=== PATIENT | female | born 1980 | race Hispanic/Latino ===

== ENCOUNTER 2021-06-24 06:47 | Day surgery (SDC) | payer BC ==
[2021-06-20 13:50] VITALS: BP 131/60
[2021-06-20 13:57] LABS: BASOPHILS % (AUTO) 0.8 % (0.0-5.0); EOSINOPHILS % (AUTO) 2.2 % (0.0-8.0); HEMATOCRIT 25.5 % (36-48); MEAN CORPUSCULAR HEMOGLOBIN 18.9 pg (27.0-33.0); MEAN CORPUSCULAR HGB CONC 28.6 g/dL (32.0-36.0); MEAN CORPUSCULAR VOLUME 66.1 fL (79-99); MONOCYTES % (AUTO) 8.2 % (3.0-13.0); NEUTROPHILS % (AUTO) 65.3 % (40.0-77.0); PLATELET COUNT (AUTO) 256 K/uL (130-400); RED BLOOD CELL COUNT(AUTO) 3.86 MIL/uL (4.00-5.50); RED CELL DISTRIBUTION WIDTH 18.9 % (11.0-15.5)
[~2021-06-24] VITALS: Ht 157.5 cm; Wt 52.0 kg
[2021-06-24] VITALS (16 sets, daily range): BP systolic 93–136; BP diastolic 54–72
[~2021-06-24 06:47] MED LIST: CALDOLOR 800MG+NS 250ML 250 ML IV SCH; LEVO88TA72 PO; ROPI0.257 PO
[2021-06-24] MEDS: LACTATED RINGERS 1000ML 1,000 ML IV SCH ×2 (07:30→07:31)
[2021-06-24] MEDS ORDERED: SCOPOLAMINE HYDROBROMIDE 1 EACH ADH..PATCH TD ONE (07:48)
[2021-06-24] MEDS ORDERED: CEFAZOLIN SODIUM 1 GM VIAL ONE (08:17)
[2021-06-24] MEDS ORDERED: SUCCINYLCHOLINE 200MG/10ML SYR ONE ×2 (08:19→08:22)
[2021-06-24] MEDS ORDERED: LIDOCAINE PF 100MG/5ML (2%) SYRINGE 5ML ONE ×2 (08:19→08:22)
[2021-06-24] MEDS ORDERED: MIDAZOLAM HCL 1 MG/ML 2ML VIAL ONE (08:19)
[2021-06-24] MEDS ORDERED: DEXAMETHASONE SOD PHOSPHATE 10MG/ML 1ML VIAL ONE (08:19)
[2021-06-24] MEDS ORDERED: PROPOFOL 10 MG/ML 20ML VIAL IV ONE (08:19)
[2021-06-24] MEDS ORDERED: GLYCOPYRROLATE 1 MG/5 ML SYRINGE ONE (08:20)
[2021-06-24] MEDS ORDERED: ROCURONIUM 10MG/1ML SYR 10 MG/ML ML ONE (08:20)
[2021-06-24] MEDS ORDERED: ONDANSETRON 4MG INJ ONE (08:20)
[2021-06-24] MEDS ORDERED: NEOSTIGMINE 5MG/5ML SYR IV ONE (08:20)
[2021-06-24] MEDS ORDERED: FENTANYL CITRATE PF 50 MCG/1 ML 2ML VIAL ONE (08:20)
[2021-06-24] MEDS ORDERED: CEFAZOLIN SODIUM 2 GM VIAL IV ONE (08:32)
[2021-06-24] MEDS ORDERED: MEPERIDINE-PF 25 MG/ML SYG ONE ×2 (09:21→09:30)
[2021-06-24] MEDS ORDERED: ACETAMINOPHEN 325 MG TAB ONE (10:25)
== END 2021-06-24 11:00 | disposition home or self-care (01) ==
LOC: DAH 06:47
PROVIDERS: ATTEND Obstetrics & Gynecology
DX: N92.1 Excessive and frequent menstruation with irregular cycle (principal); E03.9 Hypothyroidism, unspecified; Z98.891 History of uterine scar from previous surgery; Z79.899 Other long term (current) drug therapy; Z83.3 Family history of diabetes mellitus
CPT/HCPCS: 36415 ×2; 58563; 85025; 86850 ×2; 86900 ×2; 86901 ×2; 87635; A4215; A4221; A4222; A4223; A4351; A4355; A4663; A6260; C9803; J0330 ×2; J0690 ×2; J1100; J1741; J2001 ×2; J2175 ×2; J2250; J2405; J2704; J2710; J3010; J3490; J7030 ×2; J7120

== ENCOUNTER → 2023-03-24 | Outpatient (CLI) | payer BC ==
[~2023-03-24] MED LIST changes: -CALDOLOR 800MG+NS 250ML 250 ML IV SCH; -ROPI0.257 PO
== END | disposition home or self-care (01) ==
LOC: RAH 15:55
PROVIDERS: ATTEND Obstetrics & Gynecology
DX: Z12.31 Encounter for screening mammogram for malignant neoplasm of breast (principal)
CPT/HCPCS: 77067

== ENCOUNTER → 2023-07-13 | Outpatient (CLI) | payer BC | END | disposition home or self-care (01) | LOC: RAH 10:15 | PROVIDERS: ATTEND Family Medicine | DX: N60.01 Solitary cyst of right breast (principal); N60.02 Solitary cyst of left breast; N63.15 Unspecified lump in the right breast, overlapping quadrants; N63.24 Unspecified lump in the left breast, lower inner quadrant; Z98.82 Breast implant status ==

== ENCOUNTER → 2023-12-16 | Outpatient (CLI) | payer BC | END | disposition home or self-care (01) | LOC: RAH 07:38 | PROVIDERS: ATTEND Family Medicine | DX: N60.01 Solitary cyst of right breast (principal); N60.02 Solitary cyst of left breast; N63.23 Unspecified lump in the left breast, lower outer quadrant | CPT/HCPCS: 77066 ==